=== PATIENT | female | born 1980 | race Asian ===

== ENCOUNTER 2019-12-03 07:29 | Emergency (ER) | payer OTHER ==
[2019-12-03] MEDS ORDERED: ACETAMINOPHEN 325 MG TABLET (FP) PO ONE (08:26)
[2019-12-03] MEDS ORDERED: ACETAMINOPHEN 325 MG TABLET (FP) ONE (08:33)
[2019-12-03 08:40] VITALS: PULSE 104; BMI 33.6
[2019-12-03 09:04] LABS: BASO % 0.4 % (0-2.0); EOS % 0.8 % (0-4.5); HEMATOCRIT 42.2 % (32.4-45.2); HEMOGLOBIN 14.4 GM/dL (10.7-15.3); LYMPH % 6.1 % (8-40); MCH 30.3 pg (25.7-33.7); MEAN CELL VOLUME 89.1 fl (80-96); MEAN PLT VOLUME 9.1 fl (7.5-11.1); MONO % 3.1 % (3.8-10.2); NEUT % 89.6 % (42.8-82.8); PLATELET COUNT 214 K/MM3 (134-434); RBC 4.74 M/mm3 (3.60-5.2); RDW 13.2 % (11.6-15.6); WHITE BLOOD COUNT 8.1 K/mm3 (4.0-10.0)
[2019-12-03 09:27] LABS: BILIRUBIN,TOTAL 0.9 mg/dL (0.2-1); BLOOD UREA NITROGEN 16.1 mg/dL (7-18); CALCIUM 8.8 mg/dL (8.5-10.1); CREATININE 0.8 mg/dL (0.55-1.3); POTASSIUM 4.3 mmol/L (3.5-5.1); TOT PROT 8.2 g/dl (6.4-8.2)
--- NOTE | 2019-12-03 11:20 | PDOC ---
Documentation entered by Benita Cisse SCRIBE, acting as scribe for Xavier Purvis MD. Xavier Purvis MD: This documentation has been prepared by the Tanna zavala Sammi, SCRIBE, under my direction and personally reviewed by me in its entirety. I confirm that the documentation accurately reflects all work, treatment, procedures, and medical decision making performed by me. History of Present Illness - General Chief Complaint: Headache Stated Complaint: DIZZy,ABD,VOMIT/DIARREA/ARM PAIN History Source: Patient Exam Limitations: No Limitations - History of Present Illness Initial Comments: 12/03/19 08:33 The patient is a 39 year old female, who presents for evaluation of intermittent bilateral forearm/palm pain and numbness for several weeks. She also endorses 1 episode of vomiting and diarrhea this morning and onset of a mild frontal headache. She has not taken anything for her symptoms as of yet. She reports 1.5 weeks of increasing fatigue. 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 PCP: has not followed one for several years Social: Several glass of wine/night Past History - Past Medical History Allergies/Adverse Reactions: Allergies Allergy/AdvReac Type Severity Reaction Status Date / Time No Known Allergies Allergy Verified 12/03/19 07:39 Home Medications: Ambulatory Orders NK [No Known Home Medication] 12/03/19 COPD: No Dementia: No Liver Disease: No - Surgical History Lung Surgery: No - Immunization History Immunization Up to Date: No - Psycho Social/Smoking Cessation Hx Smoking History: Never smoked Have you smoked in the past 12 months: No Information on smoking cessation initiated: No Hx Alcohol Use: No Drug/Substance Use Hx: No Review of Systems - Review of Systems Comments:: 12/03/19 08:35 CONSTITUTIONAL: +fatigue. No fever, no chills EYES: No visual changes ENT: No ear pain, no sore throat CARDIOVASCULAR: No chest pain, no palpitations RESPIRATORY: No cough, no SOB GI: +nausea +vomiting +diarrhea GENITOURINARY: No dysuria, no frequency, no hematuria MUSKULOSKELETAL: +forearm pain and numbness SKIN: No rash NEURO: +mild headache *Physical Exam - Vital Signs Last Vital Signs Temp Pulse Resp BP Pulse Ox 98.7 F 104 H 18 122/78 98 12/03/19 07:36 12/03/19 07:36 12/03/19 07:36 12/03/19 07:36 12/03/19 07:36 - Physical Exam 12/03/19 08:34 CONSTITUTIONAL: Well-appearing; well-nourished; in no apparent distress EYES: PERRL; EOM intact ENMT: External appears normal; normal oropharynx NECK: Supple; non-tender; no cervical lymphadenopathy CARD: Normal S1, S2; no murmurs, rubs, or gallops RESP: Normal chest excursion with respiration; breath sounds clear and equal bilaterally; no wheezes, rhonchi, or rales ABD: Soft, non-distended; non-tender; no palpable organomegaly, no palpable hernias EXT: Normal ROM in all four extremities; non-tender to palpation; distal pulses intact SKIN: Warm, dry, no rash NEURO: No focal neurological deficiencies. ED Treatment Course - LABORATORY CBC & Chemistry Diagram: 12/03/19 08:40 12/03/19 08:26 - ADDITIONAL ORDERS Additional order review: Laboratory Results 12/03/19 12/03/19 12/03/19 08:40 08:26 08:26 Sodium 137 Potassium 4.3 Chloride 106 Carbon Dioxide 27 Anion Gap 4 L BUN 16.1 Creatinine 0.8 Est GFR (CKD-EPI)AfAm 107.64 Est GFR (CKD-EPI)NonAf 92.87 Random Glucose 123 H Calcium 8.8 Total Bilirubin 0.9 AST 64 H ALT 98 H Alkaline Phosphatase 88 Total Protein 8.2 Albumin 4.0 TSH 2.39 Urine HCG, Qual Negative 12/03/19 08:40 RBC 4.74 MCV 89.1 MCHC 34.0 RDW 13.2 MPV 9.1 Neutrophils % 89.6 H Lymphocytes % 6.1 L Monocytes % 3.1 L Eosinophils % 0.8 Basophils % 0.4 - Medications Given in the ED: ED Medications Discontinued Medications Generic Name Dose Route Start Last Admin Trade Name Freq PRN Reason Stop Dose Admin Acetaminophen 650 mg 12/03/19 08:26 12/03/19 08:53 Tylenol - PO 12/03/19 08:27 650 mg ONCE ONE Administration Medical Decision Making - Medical Decision Making 12/03/19 11:16 Patient is a well-appearing 39-year-old female who presents with mild headache, and episode of nausea and vomiting that has now resolved, bilateral forearm pain which is also resolved as well as intermittent palmar and digital numbness for the past several weeks to months bilaterally. In the ER, patient is awake and alert without focal neurological deficits. Serial abdominal exams reveal minimal right upper quadrant. Patient's LFTs were noted to be minimally elevated which may be related to her consumption of alcohol or fatty liver I do not suspect, however, cholelithiasis or gallbladder disease. Serial neurological exams reveal no focal deficits. I do not suspect the patient's headache is related to acute meningitis/subarachnoid hemorrhage or intracranial pathology. Patient received p.o. Tylenol with resolution of her symptoms. Discharge - Discharge Information Problems reviewed: Yes Clinical Impression/Diagnosis: Numbness Abdominal pain Qualifiers: Abdominal location: right upper quadrant Qualified Code(s): R10.11 - Right upper quadrant pain Condition: Stable Disposition: HOME - Follow up/Referral Referrals: Eleazar Ricci MD [Staff Physician] - - Patient Discharge Instructions Patient Printed Discharge Instructions: DI for Abdominal Pain-Adult, DI for Numbness/tingling Additional Instructions: Your liver function test revealed minimal inflammation which may be related to your alcohol use or other causes. Please follow-up in the medical clinic for further evaluation. Return immediately for severe pain, recurrent vomiting. - Post Discharge Activity
[2019-12-03 11:42] VITALS: BP 121/75; TEMP 98.1
== END 2019-12-03 11:40 | disposition home or self-care (01) ==
LOC: JER 07:29
DX: R10.11 Right upper quadrant pain (principal); R20.0 Anesthesia of skin
CPT/HCPCS: 36415; 80053; 84443; 84703; 85025; 99282-25

== ENCOUNTER 2023-07-20 09:16 | Emergency (ER) | payer OTHER ==
[2023-07-20 09:22] VITALS: BMI 35.4
[2023-07-20] MEDS ORDERED: SODIUM CHLORIDE 1,000 ML IV STA (09:59)
[2023-07-20] MEDS ORDERED: KETOROLAC TROMETHAMINE 30 MG/1 ML VIAL IVPUSH ONE (10:00)
[2023-07-20] MEDS ORDERED: LIDOCAINE 5% TOPICAL PATCH TP ONE (10:04)
[2023-07-20] MEDS ORDERED: KETOROLAC TROMETHAMINE 30 MG/1 ML VIAL ONE (10:18)
[2023-07-20] MEDS ORDERED: LIDOCAINE 5% TOPICAL PATCH ONE (10:18)
[2023-07-20 10:49] LABS: BASO % 0.4 % (0-2.0); EOS % 0.8 % (0-4.5); HEMATOCRIT 39.3 % (32.4-45.2); HEMOGLOBIN 13.1 GM/dL (10.7-15.3); LYMPH % 23.8 % (8-40); MCH 28.4 pg (25.7-33.7); MCHC 33.2 g/dl (32.0-36.0); MEAN CELL VOLUME 85.4 fl (80-96); MEAN PLT VOLUME 9.2 fl (7.5-11.1); MONO % 7.2 % (3.8-10.2); NEUT % 67.8 % (42.8-82.8); PLATELET COUNT 219 10^3/uL (134-434); RDW 14.1 % (11.6-15.6); WHITE BLOOD COUNT 8.3 K/mm3 (4.0-10.0)
[2023-07-20 10:53] LABS: EPI CELLS 14 /uL (0-25.1); HCG,QUALITATIVE URINE Negative; HYALINE CASTS 1 /uL (0-3.1); PH,URINE 5.5 (5.0-8.0); URINE APPEARANCE CLEAR; URINE BACTERIA 401 /uL (0-1359); URINE BILIRUBIN NEGATIVE (NEGATIVE); URINE COLOR YELLOW; URINE GLUCOSE (UA) NEGATIVE (NEGATIVE); URINE KETONE NEGATIVE (NEGATIVE); URINE LEUK ESTERASE TRACE (NEGATIVE); URINE NITRITE NEGATIVE (NEGATIVE); URINE PROTEIN NEGATIVE (NEGATIVE); URINE RBC 17 /uL (0-23.9); URINE UROBILINOGEN 0.2 mg/dL (0.2-1.0); URINE WBC 81 /uL (0-25.8)
[2023-07-20 11:06] LABS: POTASSIUM 4.3 mmol/L (3.5-5.1)
[2023-07-20 11:08] LABS: CALCIUM 8.6 mg/dL (8.5-10.1)
[2023-07-20 11:09] LABS: ALBUMIN 3.8 g/dl (3.4-5.0); BLOOD UREA NITROGEN 16.3 mg/dL (7-18)
[2023-07-20 11:12] LABS: CREATININE 0.7 mg/dL (0.55-1.3)
[2023-07-20 11:14] LABS: BILIRUBIN,TOTAL 0.6 mg/dL (0.2-1); TOT PROT 7.9 g/dl (6.4-8.2)
[2023-07-20 15:07] VITALS: BP 133/79; PULSE 76; RESP 19; TEMP 97.9
== END 2023-07-20 15:07 | disposition home or self-care (01) ==
LOC: JER 09:16
PROC: 3E0333Z Introduction of Anti-inflammatory into Peripheral Vein, Percutaneous Approach (ICD-10-PCS; principal; 2023-07-20)
PROC: 3E0337Z Introduction of Electrolytic and Water Balance Substance into Peripheral Vein, Percutaneous Approach (ICD-10-PCS; 2023-07-20)
DX: M54.50 Low back pain, unspecified (principal); X50.0XXA Overexertion from strenuous movement or load, initial encounter
CPT/HCPCS: 36415; 76775-TC; 80053; 81003; 84703; 85025; 87086; 99284-25